=== PATIENT | female | born 1995 | race Caucasian/White ===

== ENCOUNTER 2022-02-01 19:27 | Emergency (ER) | payer OTHER, SELFPAY ==
--- NOTE | 2022-02-01 19:30 | ED.ANIMALBIT ---
HPI - Animal Bite General Chief Complaint: Animal Bite Stated Complaint: Animal Bite Rt Hand Time Seen by Provider: 02/01/22 19:29 Source: patient Mode of arrival: ambulatory Limitations: no limitations History of Present Illness HPI narrative: Ms. Buchanan is a 27-year-old female patient presenting to the clinic today with complaints of a cat bite to the right hand. She reports she was feeding a stray cat from her hand and it bit her right index finger. She reports that she has washed it well with soap and water. This occurred approximately 30 minutes prior to arrival. Tetanus is unknown Related Data Home Medications Medication Instructions Recorded Confirmed [id number] carb-vit K 1 tablet PO DAILY 05/04/21 02/01/22 18 mg iron-400 mcg-500 mg tablet (One-A-Day Womens Formula) Allergies Allergy/AdvReac Type Severity Reaction Status Date / Time Cephalosporins Allergy Severe Hives, Verified 02/01/22 19:30 swelling Penicillins Allergy Severe Hives, Verified 02/01/22 19:30 swelling Review of Systems Review of Systems: Pertinent positives per HPI. Patient denies any fever, chills, rash, headache, visual changes, dizziness, cough, runny nose, sore throat, shortness of breath, chest pain, palpitations, nausea, vomiting, diarrhea, constipation, abdominal pain, or any urinary issues. PMFSH Surgical History Surgical History History of adenoidectomy 1998 History of breast augmentation 2017 History of sinus surgery 1997? History of tonsillectomy 2018 [place] teeth extracted 2008 Family History Family History Father Depression Anxiety Mother Depression Diabetes mellitus Heart problem Social History Social History Smoking status: Never smoker Alcohol intake: current Alcohol use details: socially Substance use: current Substance use type: marijuana Other substance usage details: social use Comments At the time of my signature, I reviewed and agree with the nursing past medical, surgical, social, and family history. There is no relevant family history pertinent to the patient complaint. Exam Narrative: General: Well-developed, well nourished, in no apparent distress Head: Normocephalic, atraumatic. Cardio: Regular rate and rhythm, s1 and s2 normal, no murmur appreciated. Resp: Clear to auscultation bilaterally, no rhonchi, rales, wheezing or rubs. Integumentary: [place], warm, and dry, 3 very small puncture wounds to to the volar aspect of the right index finger 1 to the proximal finger and 1 to the distal finger and 1 puncture wound to the dorsal distal finger. Bleeding is controlled. Localized swelling and redness and tenderness around puncture wounds. Course Course Emergency Course: Portions of this record may have been created with voice recognition software. Level of Care: Express Care Visit Vital Signs Vital signs: Vital signs reviewed MDM - Animal Bite MDM Narrative Medical decision making narrative: At the time of assessment patient is resting comfortably on the exam table. She has 3 puncture wounds to her right hand under. Tdap given in the clinic. Prescriptions for doxycycline and metronidazole given for antibiotic prophylactic. Supportive measures were discussed with the patient she voiced understanding of discharge instructions and agrees to the treatment plan. Differential Diagnosis Differential diagnosis: Likely bite by animal and cat bite Discharge Plan Discharge Clinical Impression: Puncture wound Cat bite Qualifiers: Encounter type: initial encounter Qualified Code(s): W55.01XA - Bitten by cat, initial encounter Patient Disposition: Home, Self-Care Condition: Stable Instructions: Antibiotic Form, Animal Bite (ED) Additional Instruc
[2022-02-01 19:39] VITALS: BP 128/81; PULSE 81; RESP 16; TEMP 37.2; O2SAT 100
[2022-02-01] MEDS: TETANUS,DIPHTHERIA,AC PERTUSSIS ADULT (0.5 ML) BOOSTRIX IM (19:44)
== END 2022-02-01 19:48 | disposition home or self-care (01) ==
PROVIDERS: Emergency Provider Nurse Practitioner Family
DX: S61.230A Puncture wound without foreign body of right index finger without damage to nail, initial encounter (principal); W55.01XA Bitten by cat, initial encounter; Z23 Encounter for immunization
CPT/HCPCS: 90471; 90715; 99213; G0463